=== PATIENT | female | born 2000 | race Caucasian/White ===

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

== ENCOUNTER 2020-08-21 12:34 | Emergency (ER) | payer OTHER ==
[~2020-08-21] VITALS: Ht 172.7 cm; Wt 56.7 kg
[2020-08-21] MEDS ORDERED: Veetids 500500 MG PO (13:49)
== END 2020-08-21 13:54 | disposition home or self-care (01) ==
LOC: ER 12:34
DX: K04.7 Periapical abscess without sinus (principal); F17.210 Nicotine dependence, cigarettes, uncomplicated
CPT/HCPCS: 99282

== ENCOUNTER 2021-12-27 01:56 | Emergency (ER) | payer OTHER ==
[~2021-12-27] VITALS: Ht 172.7 cm; Wt 54.4 kg
[~2021-12-27 01:56] MED LIST changes: +Veetids 500500 MG PO
== END 2021-12-27 05:52 | disposition home or self-care (01) ==
LOC: ER 01:56
DX: M79.674 Pain in right toe(s) (principal); F17.210 Nicotine dependence, cigarettes, uncomplicated; W22.09XA Striking against other stationary object, initial encounter
CPT/HCPCS: 73660; A9270

== ENCOUNTER 2022-03-30 07:32 | Emergency (ER) | payer OTHER ==
[~2022-03-30] VITALS: Ht 172.7 cm; Wt 54.4 kg
[2022-03-30] MEDS ORDERED: AMOCLA875 PO (07:58)
[2022-03-30] MEDS ORDERED: PRED20 PO (07:58)
== END 2022-03-30 08:20 | disposition home or self-care (01) ==
LOC: ER 07:32
DX: K02.9 Dental caries, unspecified (principal); K04.7 Periapical abscess without sinus; F17.210 Nicotine dependence, cigarettes, uncomplicated
CPT/HCPCS: A9270; J1100

== ENCOUNTER 2022-07-21 02:54 | Emergency (ER) | payer OTHER ==
[~2022-07-21] VITALS: Ht 172.7 cm; Wt 54.4 kg
[~2022-07-21 02:54] MED LIST changes: +AMOCLA875 PO; +PRED20 PO
[2022-07-21] MEDS ORDERED: AMOCLA875 PO (03:08)
== END 2022-07-21 03:19 | disposition home or self-care (01) ==
LOC: ER 02:54
DX: K02.9 Dental caries, unspecified (principal); Z79.52 Long term (current) use of systemic steroids; F17.210 Nicotine dependence, cigarettes, uncomplicated
CPT/HCPCS: 99282; A9270

== ENCOUNTER → 2023-05-25 | Outpatient (CLI) | payer OTHER | LOC: LAB SHORT 13:20 → LAB 13:20 | DX: S81.802A Unspecified open wound, left lower leg, initial encounter (principal) | CPT/HCPCS: 87070; 87077; 87147; 87186; 87205 ==

== ENCOUNTER 2023-11-26 01:53 | Emergency (ER) | payer OTHER ==
[~2023-11-26] VITALS: Ht 165.1 cm; Wt 49.9 kg
[~2023-11-26 01:53] MED LIST changes: +Ibuprofen600 MG PO
[2023-11-26] MEDS ORDERED: CeFAZolin Sodium 1,000 MG in NS 50 ML IV ONE (02:15)
[2023-11-26] MEDS ORDERED: HYDROXOCOBALAMIN IV ONE (02:15)
[2023-11-26] MEDS ORDERED: Pantoprazole Sodium 40 MG Injection IV ONE (02:15)
[2023-11-26] MEDS ORDERED: Ketamine HCL 1,000 MG in NS 100 ML IV SCH (02:15)
[2023-11-26] MEDS ORDERED: NS 1,000 ML IV ONE (02:16)
[2023-11-26] MEDS ORDERED: Diphth,Pertuss(Acell),Tet Vac 0.5 ML VIAL IM ONE (02:20)
[2023-11-26 02:41] LABS: pH Blood Venous 7.02 (7.34-7.37)
[2023-11-26 02:42] LABS: Base Excess Venous -16.7 mmol/L; Bicarbonate Venous 11.8 mmol/L (24.0-30.0); PCO2 Venous 55.5 mmHg (38-42); PO2 Venous 54.8 mmHg (38-42)
[2023-11-26] MEDS ORDERED: EPINEPhrine HCl 0.1 MG/ML 10ML SYR IV ONE (23:23)
[2023-11-26] MEDS ORDERED: Phenylephrine HCl 100 MCG/ML-NS 10MLSYR (1MG/10ML) IV ONE (23:23)
[2023-11-26] MEDS ORDERED: Sodium Bicarb 8.4% 50 mEq Syringe IV ONE (23:23)
== END 2023-11-26 03:02 | disposition short-term general hospital (02) ==
LOC: ER 01:53
PROVIDERS: Student in an Organized Health Care Education/Training Program
DX: T23.302A Burn of third degree of left hand, unspecified site, initial encounter (principal); T23.301A Burn of third degree of right hand, unspecified site, initial encounter; T21.32XA Burn of third degree of abdominal wall, initial encounter; T25.322A Burn of third degree of left foot, initial encounter; T25.321A Burn of third degree of right foot, initial encounter; T20.35XA Burn of third degree of scalp [any part], initial encounter; T26.10XA Burn of cornea and conjunctival sac, unspecified eye, initial encounter; T21.31XA Burn of third degree of chest wall, initial encounter; T31.8 Burns involving 80-89% of body surface; I46.9 Cardiac arrest, cause unspecified; J96.90 Respiratory failure, unspecified, unspecified whether with hypoxia or hypercapnia; I95.9 Hypotension, unspecified; F17.210 Nicotine dependence, cigarettes, uncomplicated
CPT/HCPCS: 31500; 71045; 82375; 82803; 90715; 94002; 99291-25; C9113; J0690; J2371; J3420; J7030; J7060